=== PATIENT | male | born 1955 | race Caucasian/White ===

== ENCOUNTER 2017-10-07 10:43 | Inpatient (IN) | payer OTHER ==
[~2017-10-07] VITALS: Ht 177.8 cm; Wt 183.7 kg
[~2017-10-07 10:43] MED LIST: 50% Dextro25 GM/50 M IV; ALLOPURINOL300 MG PO; CATAPRES0.2 MG PO; CLONIDINE0.1 MG PO; COLACE100 MG PO; COLSALIDE IMPR0.6 MG PO; CYMBALTA60 MG PO; DEMADEX100 MG PO; DIAMOX250 MG PO; DULCOLAX10 MG R; DULCOLAX5 MG PO; DUONEB 3 MG/3 ML3 M1 NEB; HEP-LOCK100 U/ML IV; HYDROCODONE BIT1 T11 PO; KEFLEX500 MG PO; KLOR-CON20 MEQ PO; LANTUS100 U/ML SC; LASIX 40MG40 MG/4 ML IV; LASIX20 MG PO; LASIX40 MG PO; LISINOPRIL/HCTZ1 TA2 PO; LISINOPRIL20 MG PO; LOPRESSOR100 MG PO; Lovenox40 MG/0.4 SC; MOM30 M1 PO; MORPHINE SULF2 MG/M1 IV; NEURONTIN300 MG PO; NOVOLOG1 UNIT/0.0 SC; NYSTATIN CREAM15 GM T; OMEGA-3 FISH1200 M1 PO; PROCARDIA XL90 MG PO; PROCARDIA20 MG PO; PROMETHAZI6.25 MG/5 PO; RESTORIL15 MG PO; SALINE FLUSH IV; SYNTHROID,LEV175 MCG PO; TYLENOL325 M1 PO; TYLENOL650 MG R; VICODIN 5/500 505 MG PO; VICODIN 500 MG-1 TAB PO; WARFARIN SODIUM10 MG PO; ZITHROMAX250 MG PO; ZOFRAN2 MG/ML IV; [UNRECOGNIZED DRUG - OTHER] PO
[2017-10-07 10:50] VITALS: BP 137/73
[2017-10-07 11:06] LABS: BASO % 0.3 % (0.0-1.0); EOS # 0.5 10*3/uL (0.0-0.4); EOS % 3.9 % (1.0-4.0); HEMATOCRIT 36.4 % (42.0-52.0); HEMOGLOBIN 11.8 g/dl (14.0-18.0); LYMPH # 2.6 10*3/uL (1.3-4.4); LYMPH % 21.9 % (27.0-41.0); MEAN CELL VOLUME 94.3 fl (80.0-94.0); MEAN CORPUSCULAR HGB 30.6 pg (27.0-31.0); MEAN CORPUSCULAR HGB CONC 32.4 g/dl (33.0-37.0); MEAN PLATELET VOLUME 9.7 fl (9.6-12.3); MONO # 0.8 10*3/uL (0.1-1.0); MONO % 6.8 % (3.0-9.0); NEUT # 7.9 10*3/uL (2.3-7.9); NEUT % 66.6 % (47.0-73.0); PLATELET COUNT AUTOMATED 291 10*3/uL (130-400); RED BLOOD COUNT 3.86 10*6/uL (4.50-5.90); RED CELL DISTRI WIDTH 13.7 % (0-14.5); WHITE BLOOD COUNT 11.8 10*3/uL (4.8-10.8)
[2017-10-07 11:10] LABS: BILIRUBIN NEGATIVE (NEGATIVE); BLOOD TRACE-INTACT (NEGATIVE); CLARITY CLEAR (CLEAR); COLOR STRAW (YELLOW); GLUCOSE NEGATIVE (NEGATIVE); KETONE NEGATIVE (NEGATIVE); LEUKO ESTERASE NEGATIVE (NEGATIVE); NITRITE NEGATIVE (NEGATIVE); UROBILINOGEN 0.2 E.U./dl (0.2-1.0)
[2017-10-07 11:15] LABS: ACT PARTIAL THROMBO TIME 23.6 SECONDS (20.8-31.5); INTERNATIONAL NORM RATIO 1.3 (2.0-3.5)
[2017-10-07 11:24] LABS: RBC 0-2 rbc/hpf (0-2); WBC 0-2 wbc/hpf (0-5)
[2017-10-07 11:24] LABS: ALBUMIN 3.2 gm/dl (3.1-4.5); ALKALINE PHOSPHATASE 95 U/L (45-117); BUN 55 mg/dl (7-24); CHLORIDE 104 mmol/L (98-107); CREATININE 1.57 mg/dL (0.70-1.30); SGOT/AST 15 IU/L (3-35); SGPT/ALT 28 U/L (12-78); SODIUM 140 mmol/L (136-145); TOTAL PROTEIN 7.8 gm/dL (6.4-8.2)
--- NOTE | 2017-10-07 11:24 | NUR ---
PT WEARING CEHLSEY WRAPS TO BOTH LOWER EXTREMITY. THIS WAS REMOVED AND SMALL OPEN AREA NOTED TO RIGHT LOWER LEG WITH MILD REDNESS NOTED. PT ALSO HAS BLACK SPOTS OF BOTH FEET + PEDAL PULSE FEET WARM AND DRY. REDNESS NOTED UNDER ABD AND SCROTUM. WITH TURNING TH PATIENT MUCH POSSIBLE SMALL OPEN AREA NOTED TO LEFT UUPERLEG/BUTTOCKS ALSO RIGHT LEG. JEN BOSE RN.
[2017-10-07 11:25] LABS: TROPONIN I < 0.015 ng/ml (<0.045)
--- NOTE | 2017-10-07 11:27 | NUR ---
PT HAS HIS MEDICATIONS CELL PHONE BLACK WALLET, SHORTS, SHIRT SOCKS, AND PAD FOR HIS CHELSEY LIFT. JEN BOSE RN.
[2017-10-07 11:46] VITALS: BP 129/78
[2017-10-07 12:36] VITALS: BP 124/66
[2017-10-07] MEDS ORDERED: LOPERAMIDE HCL2 MG PO (12:48)
[2017-10-07] MEDS ORDERED: MIRALAX119 GM PO (12:50)
[2017-10-07] MEDS ORDERED: OMEPRAZOLE40 MG PO (12:51)
[2017-10-07] MEDS ORDERED: FORTAMET1000 MG PO (12:55)
[2017-10-07] MEDS ORDERED: NIFEDIPINE ER90 M1 PO (12:58)
--- NOTE | 2017-10-07 13:04 | NUR ---
MSADMTime: N A 62 year old MALE admitted to 4E under services of PAOLA FLOYD DO Pt. arrived via bed from ER. Chief complaint: REHANA CHINCHILLA L
--- NOTE | 2017-10-07 13:12 | NUR ---
SPOKE WITH DR. JASSO REGARDING PT'S MED REC.
[2017-10-07] MEDS ORDERED: BASAGLAR SC (13:16)
--- NOTE | 2017-10-07 13:18 | NUR ---
RECEIVED MED LIST FROM [facility] WHICH MOST MEDS HAVE NOT BEEN FILLED FOR QUITE SOMETIME. ASKED PT IF HE USED ANY OTHER PHARMACY, PT DENIES USING ANY OTHER PHARMACY BUT [facility]. WENT OVER LIST IN MED REC WITH PT WHO IS ALERT & ORIENTED BUT HAS NO IDEA WHAT MOST MEDS ARE. STATES " I DONT TAKE ALOT OF THESE MEDS BECAUSE [facility] WON'T FILL THEM FOR ME" WHEN QUESTIONED ABOUT LAST TIME MEDS WERE FILLED, PT HAS NO CERTAIN ANSWER. ATTEMPTED TO UPDATE MED REC TO THE BEST OF OUR ABILITY. DR ELAINE MADE AWARE BY PRIMARY NURSE. MED LIST FROM [facility] ON CHART.
[2017-10-07] MEDS ORDERED: 'CLONIDINE0.1 MG PO (13:29)
[2017-10-07] MEDS ORDERED: DIAMOX500 MG PO (13:30)
[2017-10-07] MEDS ORDERED: NEURONTIN300 MG PO (13:30)
[2017-10-07] MEDS ORDERED: CYMBALTA60 MG PO (13:30)
[2017-10-07] MEDS ORDERED: ALLOPURINOL300 MG PO (13:31)
[2017-10-07] MEDS ORDERED: LOPRESSOR100 M1 PO (13:31)
[2017-10-07] MEDS ORDERED: LANTUS SOL100 UNIT/1 SC (13:32)
[2017-10-07 16:00] VITALS: BP 138/74
[2017-10-07 20:00] VITALS: BP 141/48
[2017-10-08] VITALS: BP 118/57
[2017-10-08 06:50] LABS: BASO % 0.4 % (0.0-1.0); EOS # 0.3 10*3/uL (0.0-0.4); EOS % 3.2 % (1.0-4.0); HEMATOCRIT 34.1 % (42.0-52.0); LYMPH # 2.7 10*3/uL (1.3-4.4); LYMPH % 25.4 % (27.0-41.0); MEAN CELL VOLUME 96.3 fl (80.0-94.0); MEAN CORPUSCULAR HGB 31.1 pg (27.0-31.0); MEAN CORPUSCULAR HGB CONC 32.3 g/dl (33.0-37.0); MONO # 0.7 10*3/uL (0.1-1.0); MONO % 6.9 % (3.0-9.0); NEUT # 6.8 10*3/uL (2.3-7.9); NEUT % 63.7 % (47.0-73.0); PLATELET COUNT AUTOMATED 258 10*3/uL (130-400); RED BLOOD COUNT 3.54 10*6/uL (4.50-5.90); RED CELL DISTRI WIDTH 13.7 % (0-14.5); WHITE BLOOD COUNT 10.6 10*3/uL (4.8-10.8)
[2017-10-08 07:18] LABS: INTERNATIONAL NORM RATIO 1.2 (2.0-3.5)
[2017-10-08 07:20] LABS: BUN 56 mg/dl (7-24); CHLORIDE 102 mmol/L (98-107); CHOLESTEROL 127 mg/dL (<200); CREATININE 1.36 mg/dL (0.70-1.30); FREE T4 1.61 ng/dl (0.76-1.46); HDL CHOLESTEROL 36 mg/dl (40-60); LDL CHOLESTEROL 74 mg/dL (9-159); PHOSPHOROUS 3.9 mg/dL (2.5-4.9); POTASSIUM 4.8 mmol/L (3.5-5.1); SODIUM 137 mmol/L (136-145); TRIGLYCERIDES 87 mg/dl (<150); VLDL CHOLESTEROL 17 mg/dL (6-40)
[2017-10-08 07:27] LABS: THYROID STIM HORMONE (HS) 0.704 uIU/ml (0.358-4.75)
[2017-10-08 07:54] LABS: VITAMIN D, 25-HYDROXY 27.1 ng/mL (30-100)
[2017-10-08 08:00] VITALS: BP 117/83
--- NOTE | 2017-10-08 08:00 | NUR ---
IN BED AWAKE ALERT AND ORIENTED X3, GETTING BREATHING TREATMENT. NO S/S OF DISTRESS. SEE ASSESS. WILL CONT TO MONITOR. CALL LIGHT IN REACH.
--- NOTE | 2017-10-08 08:42 | NUR ---
In to see patient to discuss discharge plans. Patient stated he wants to be referred to [facility]. Will contacted Stephanie and fax referral. Will require precert.
--- NOTE | 2017-10-08 09:19 | NUR ---
CALLED PCP OFFICE TO GET LIST OF HOME MEDS. MESSAGE LEFT APPROPRIATE PERSON AND AWAITING CALLBACK.
--- NOTE | 2017-10-08 09:36 | NUR ---
PHYSICAL THERAPY PAtient evaluated on 4, full evaluation to follow. Continue with PT as per plan of care with fall, max (A) x 2, evon and non ambulatory or standing for 3-5 years precautions. PAtient wanst SNF. MAy require LTAC. PAtient is high complexity via chart review, tests and evaluation : 66519. Thank you for for this referral. Velia Adame
--- NOTE | 2017-10-08 10:33 | NUR ---
Occupational Therapy evaluation completed this date on 4 with full eval to follow. Precautions include obesity >400 lbs, O2 dependency, sleep apnea, unable to stand or walk for 3-5 yrs, Fredy use, elec w/c; both of which are broken per patient, high complexity level 82920. Recommend OT per POC and LTACH or bariatric SNF. Thank you for this referral. Nadya Valadez OTR/l
--- NOTE | 2017-10-08 10:56 | NUR ---
[facility] stated they are unable to accept this patient as his insurance is out of network.
--- NOTE | 2017-10-08 11:47 | NUR ---
DR ELAINE ASKED THAT I CALL WITH [facility] THAT THE PT GOES TO AND GET A MEDICAL HISTORY ON HIM FAXED OVER TO US. I DID SPEAK TO SOMEONE AT THE [facility] AND SHE SAID SHE WOULD FAX ME WHAT LITTLE INFO THEY DO HAVE ON HIM BECAUSE THEY HAVE HAD A PROBLEM GETTING ACCURATE INFO FROM HIM WELL.
[2017-10-08] MEDS ORDERED: NATURE'S BLEND F1 MG PO (11:50)
[2017-10-08] MEDS ORDERED: NITROSTAT0.4 MG SL (11:50)
--- NOTE | 2017-10-08 11:50 | NUR ---
ANKUR NAVAS [id number] Please refer to the physician's history and physical for past medical history, comorbid conditions, and allergies. Diagnosis: MORBID OBESITY ACUTE KIDNEY FAILURE WITH TUBULAR Jacob Score: 13,MODERATE RISK WOUND DESCRIPTIONS: Location of the wound: right posterior thigh Type of wound: stage 2 Thickness: Partial Size: 0.5cm x 1.0cm x 0.1cm Tunneling: none Undermining: none Sinus Tract: none Presence of Exudate: Serosanguineous Amount: Light Color: Red Odor: None Periwound Skin Appearance: Normal Wound edges: approximated Pain (associated with wound): none at time of assessment How does patient state this happened? pt stated he happened when being transfered to the ER bed Location of the wound: left buttocks Type of wound: stage 2 Thickness: Partial Size: 0.3cm x 0.3cm x 0.1cm Tunneling: none Undermining: none Sinus Tract: none Presence of Exudate: Serosanguineous Amount: Light Color: Red Odor: None Periwound Skin Appearance: Normal Wound edges: approximated Pain (associated with wound): none at time of assessment How does patient state this happened? pt stated it happened when transfered to the ER bed. Surface the patient is resting on: Isoflex SKIN PREVENTION RECOMMENDATION: 1. Pressure redistribution support surface as appropriate 2. Elevate heels 3. Remove boots/TEDS every shift and reapply 4. Head of bed 30 degrees as tolerated 5. Assess nutrition and hydration 6. Manage moisture 7. Avoid the use of containment devices while in bed 8. Use absorptive products on surfaces limit layers of linens on bed 9. Turn and reposition every 1-2 hours in bed and every 1 hour in chair as tolerated 10. Weight shifts every 15 minutes while up in chair 11. Offloading with pillows or device to keep heels elevated off bed 12. Monitor skin at least every shift 13. Inspect under medical devices twice a day WOUND TREATMENT RECOMMENDATIONS: Cleanse right posterior thigh and left buttocks with nss and apply sureprep to surrounding area therahoney to wound bed cover areas with optifoam gentle. Dr. Mosqueda notified of wound care recommendations.
[2017-10-08] MEDS ORDERED: DOCUSATE SODIU100 M2 PO (11:51)
[2017-10-08] MEDS ORDERED: Coumadin5 MG PO (11:53)
[2017-10-08 12:00] VITALS: BP 145/71
--- NOTE | 2017-10-08 12:04 | NUR ---
MED REC UPDATED BASED ON LIST PROVIDED FROM [facility]. I LEFT THE MEDS ON THE MED REC THAT WERE CONTINUED BY THE DOCTOR HERE AND WAS NOT ON THE LIST FROM THE [facility] AND I TOOK THE OTHERS OFF.
--- NOTE | 2017-10-08 13:26 | NUR ---
In to see patient, explained [facility] is out of network for his insurance, however [facility] is willing to take him. He was in agreement. [facility]ron owusu will start precert and is ordering bariatric supplies. Waiting on auth
[2017-10-08 16:00] VITALS: BP 128/61
[2017-10-08 20:00] VITALS: BP 139/60
--- NOTE | 2017-10-08 20:10 | NUR ---
PT MOVED TO BARIATRIC BED. PT EDUCATED ON BED CONTROLS AND LIFT. NO COMPLAINTS FROM THE PT AT THIS TIME.
[2017-10-09] VITALS: BP 128/63
[2017-10-09 06:11] LABS: BUN 51 mg/dl (7-24); CHLORIDE 103 mmol/L (98-107); CREATININE 1.31 mg/dL (0.70-1.30); SODIUM 138 mmol/L (136-145)
[2017-10-09 06:16] LABS: INTERNATIONAL NORM RATIO 1.2 (2.0-3.5)
[2017-10-09 08:00] VITALS: BP 143/87
[2017-10-09 12:00] VITALS: BP 139/67
[2017-10-09 16:00] VITALS: BP 150/63
[2017-10-09 20:00] VITALS: BP 148/66
[2017-10-10] VITALS: BP 104/61
--- NOTE | 2017-10-10 | NUR ---
RESTING IN BED; AWAKE & ALERT. 02 INTACT AT 3 LITERS VIA N/C; PULSE OX 98%. LUNGS WITH SOME SCATTERED WHEEZES; COUGH PRODUCTIVE PER PATIENT FOR YELLOW/GREEN SPUTUM. PT. VOICES NO C/O AT THIS TIME. NO DISTRESS NOTED. CALL LIGHT WITHIN REACH.
[2017-10-10 06:32] LABS: BASO # 0.1 10*3/uL (0.0-0.1); BASO % 0.5 % (0.0-1.0); EOS # 0.4 10*3/uL (0.0-0.4); EOS % 3.7 % (1.0-4.0); HEMATOCRIT 32.3 % (42.0-52.0); HEMOGLOBIN 10.7 g/dl (14.0-18.0); LYMPH # 2.9 10*3/uL (1.3-4.4); LYMPH % 26.3 % (27.0-41.0); MEAN CELL VOLUME 93.9 fl (80.0-94.0); MEAN CORPUSCULAR HGB 31.1 pg (27.0-31.0); MEAN CORPUSCULAR HGB CONC 33.1 g/dl (33.0-37.0); MEAN PLATELET VOLUME 9.9 fl (9.6-12.3); MONO # 0.8 10*3/uL (0.1-1.0); MONO % 7.2 % (3.0-9.0); NEUT # 6.8 10*3/uL (2.3-7.9); NEUT % 61.9 % (47.0-73.0); PLATELET COUNT AUTOMATED 280 10*3/uL (130-400); RED BLOOD COUNT 3.44 10*6/uL (4.50-5.90); RED CELL DISTRI WIDTH 13.7 % (0-14.5)
[2017-10-10 06:59] LABS: ALBUMIN 3.1 gm/dl (3.1-4.5); ALKALINE PHOSPHATASE 84 U/L (45-117); BUN 46 mg/dl (7-24); CHLORIDE 103 mmol/L (98-107); CREATININE 1.31 mg/dL (0.70-1.30); POTASSIUM 4.4 mmol/L (3.5-5.1); SGOT/AST 9 IU/L (3-35); SGPT/ALT 19 U/L (12-78); SODIUM 137 mmol/L (136-145); TOTAL PROTEIN 7.2 gm/dL (6.4-8.2)
[2017-10-10 07:00] LABS: INTERNATIONAL NORM RATIO 1.1 (2.0-3.5)
[2017-10-10 08:00] VITALS: BP 120/60
--- NOTE | 2017-10-10 08:00 | NUR ---
SLEEPING, AROUSES EASILY WITH NO VOICED C/O OFFERED. EASY RESPIRATIONS WITH SKIN W/D. CALL LIGHT SYSTEM REINFORCED FOR ASSISTANCE. SEE SHIFT ASSESSMENT.
[2017-10-10 12:00] VITALS: BP 164/80
--- NOTE | 2017-10-10 12:19 | NUR ---
DR GROSS IN TO SEE PT.
[2017-10-10 16:00] VITALS: BP 128/71
[2017-10-10 20:00] VITALS: BP 136/72
--- NOTE | 2017-10-10 22:00 | NUR ---
PT STOOD OUT OF BED ON HIS OWN FOR A PERIOD OF 10 SECONDS. NURSE AND AIDE WAS THERE TO KEEP PT STEADY. PT GOT UP ON HIS OWN. WILL CONTINUE TO MONITOR.
[2017-10-11] VITALS: BP 135/76
[2017-10-11 07:24] LABS: INTERNATIONAL NORM RATIO 1.1 (2.0-3.5)
[2017-10-11 08:00] VITALS: BP 140/70
--- NOTE | 2017-10-11 11:25 | NUR ---
PATIENT SEEN 1:1 OT 17 MINUTES THIS DATE. PATIENT IDENTIFIED BY NAME AND DATE OF . PATIENT IN BED UPON ARRIVAL ON BED SALGUERO. PATIENT VERBALIZED THAT HE DID NOT FEEL LIKE HE WAS GOING TO HAVE A BM AND REMOVED BED SALGUERO INDEPENDENTLY. PATIENT REPORTS THAT HE DOES EXERCISES ALL DAY LONG. PATIENT COMPLETED SUPINE TO SIT EOB SBA. COMPLETED BUE AROM SEATED ALL PLANES INCLUDED SHOULDER FLEXION/EXT X 20 REPS, ELBOW FLEX/EXT X 20 REPS, SHOULDER RETRACT/PROTRACT X 13 REP TOLERANCE SECONDARY FATIGUE AND VERBALIZING THAT WAS ALL HE COULD DO, AND HORIZONTAL ABD/ADD X 25 REPS. PATIENT REQUIRED MODERATE REST BREAKS WITH SOB. PATIENT EDUCATED PURSE REJI BREATHING TECHNIQUES AND TO PACE SELF WITH EXERCISES. PATIENT EASILY DISTRACTED AND REQUIRED REDIRECTION TO MAINTAIN ATTENTION TASK. PATIENT COMPLETED SIT TO SUPINE SBA WITH NO FURTHER NEED VERBALIZED AND CALL LIGHT WITHIN REACH. JAYMIE WOODS
[2017-10-11 12:00] VITALS: BP 128/56
--- NOTE | 2017-10-11 12:10 | NUR ---
Recieved auth for patient to go to [facility]. Cele said the bariatric equipment has arrived and patient is ok to go today. Notified Yarelis Nurse director of hospitalists for discharge.
--- NOTE | 2017-10-11 12:17 | NUR ---
AMY RECEIVED CALL FROM BEN REYNAGA ([phone]) INQUIRING IF PT WAS GOING TO [facility] FOR REHAB. ADA HAD JUST SPOKEN WITH PT. AMY INFORMED HER THAT PT MAY GO TO [facility] TODAY.
[2017-10-11] MEDS ORDERED: Insulin Lispro, Reco SC (13:25)
[2017-10-11] MEDS ORDERED: Vitamin D PO (13:25)
[2017-10-11] MEDS ORDERED: COUMADIN10 M1 PO (13:25)
--- NOTE | 2017-10-11 14:25 | NUR ---
Nutritional Support Services Note: Attempted to discuss diet with pt. Pt told me he knows how to follow a diet and what to do. He has lost 400# in the last 6 months per pt. He refused diet copy and refused to listen to diet instruction. Pt being discharged to area longterm. Stacia Silva
--- NOTE | 2017-10-11 14:29 | NUR ---
PHYSICAL THERAPY Patient presented to therapy in supine with report of doing exercises throughout the day and being in 3 nursing homes recently. Patient performed ther ex in the bed in supine and in sitting at EOB in all planes of mvmt. x 20 reps each. Patient transfers supine to sitting at EOB and from EOB sitting to supine in bed with SBA. Patient says he has not stood in a long time and was evon lifted most of the time in nursing homes. Patient was 1:1 with this FREE LANCE ARTIST for 25 minutes total. Patient was left in supine with call light within reach. Filipe Geronimo FREE LANCE ARTIST
--- NOTE | 2017-10-11 14:41 | NUR ---
Patient is being discharged to [facility], transportation scheduled for 4:30 pm with [facility]. NH and nursing notified.
--- NOTE | 2017-10-11 19:25 | NUR ---
REPORT GIVEN TO NURSE AT [facility]. Discharge instructions reviewed with patient/family. Patient receptive and verbalizes understanding. Follow-up care arranged. Written instructions given to patient/family. Patient left unit in the care of EMT's. He at one point was refusing to go to the group home unless they had a mobile wheelchair. I informed the patient that he was going to the group home [facility] and that arrangements for a chair could be addressed in the morning with the major case detective. He insisted that he would be returning to the hospital tonight if they did not have this chair. I reinforced that is no reason to be readmitted into the hospital and he is to stay at the group home [facility]. I told him arrangements have been made and we were not changing the plans. MEREDITH COOK
--- NOTE | 2017-10-12 07:41 | NUR ---
PHYSICAL THERAPY CO-SIGN I approve of the Phyical Therapy notes written above. CAMRYN RUIZ PT
--- NOTE | 2017-10-13 08:35 | NUR ---
OCCUPATIONAL THERAPY CO-SIGN I approve of the Occupational Therapy notes written above. LOUIS ARRIAGA OTR/Anabel
== END 2017-10-11 19:25 | disposition other institution (70) | DRG 682 ==
LOC: ED 10:43 → EDHOLD 11:43 → 4E 11:43
PROVIDERS: Internal Medicine; Nurse Practitioner Family; Student in an Organized Health Care Education/Training Program; ADMIT Internal Medicine
DX: N17.0 Acute kidney failure with tubular necrosis (principal); R53.2 Functional quadriplegia; J96.11 Chronic respiratory failure with hypoxia; L89.321 Pressure ulcer of left buttock, stage 1; L89.211 Pressure ulcer of right hip, stage 1; E46 Unspecified protein-calorie malnutrition; I50.32 Chronic diastolic (congestive) heart failure; Z68.43 Body mass index [BMI] 50.0-59.9, adult; Z99.81 Dependence on supplemental oxygen; B35.1 Tinea unguium; E11.65 Type 2 diabetes mellitus with hyperglycemia; E03.9 Hypothyroidism, unspecified; R31.9 Hematuria, unspecified; M10.9 Gout, unspecified; I87.2 Venous insufficiency (chronic) (peripheral); D72.810 Lymphocytopenia; E55.9 Vitamin D deficiency, unspecified; D53.9 Nutritional anemia, unspecified; D72.829 Elevated white blood cell count, unspecified; R79.1 Abnormal coagulation profile; E66.01 Morbid (severe) obesity due to excess calories; Z91.14 Patient's other noncompliance with medication regimen; Z79.01 Long term (current) use of anticoagulants; Z79.4 Long term (current) use of insulin; Z83.3 Family history of diabetes mellitus; Z82.49 Family history of ischemic heart disease and other diseases of the circulatory system; Z80.9 Family history of malignant neoplasm, unspecified; Z79.84 Long term (current) use of oral hypoglycemic drugs; Z79.899 Other long term (current) drug therapy

== ENCOUNTER 2018-02-21 12:08 | Emergency (ER) | payer OTHER ==
[~2018-02-21] VITALS: Wt 181.4 kg
[~2018-02-21 12:08] MED LIST changes: +'CLONIDINE0.1 MG PO; +BASAGLAR SC; +COUMADIN10 M1 PO; +Coumadin5 MG PO; +DIAMOX500 MG PO; +DOCUSATE SODIU100 M2 PO; +FORTAMET1000 MG PO; +Insulin Lispro, Reco SC; +LANTUS SOL100 UNIT/1 SC; +LOPERAMIDE HCL2 MG PO; +LOPRESSOR100 M1 PO; +MIRALAX119 GM PO; +NATURE'S BLEND F1 MG PO; +NIFEDIPINE ER90 M1 PO; +NITROSTAT0.4 MG SL; +OMEPRAZOLE40 MG PO; +Vitamin D PO
[2018-02-21 18:19] LABS: BASO # 0.1 10*3/uL (0.0-0.1); BASO % 0.3 % (0.0-1.0); EOS % 0.1 % (1.0-4.0); HEMATOCRIT 31.2 % (42.0-52.0); LYMPH # 1.3 10*3/uL (1.3-4.4); LYMPH % 7.5 % (27.0-41.0); MEAN CELL VOLUME 95.7 fl (80.0-94.0); MEAN CORPUSCULAR HGB 30.7 pg (27.0-31.0); MEAN CORPUSCULAR HGB CONC 32.1 g/dl (33.0-37.0); MEAN PLATELET VOLUME 10.2 fl (9.6-12.3); MONO # 1.1 10*3/uL (0.1-1.0); NEUT # 15.1 10*3/uL (2.3-7.9); NEUT % 85.6 % (47.0-73.0); PLATELET COUNT AUTOMATED 266 10*3/uL (130-400); RED BLOOD COUNT 3.26 10*6/uL (4.50-5.90); RED CELL DISTRI WIDTH 13.7 % (0-14.5); WHITE BLOOD COUNT 17.6 10*3/uL (4.8-10.8)
[2018-02-21 18:29] LABS: ACT PARTIAL THROMBO TIME 26.6 SECONDS (20.8-31.5); INTERNATIONAL NORM RATIO 1.8 (2.0-3.5)
[2018-02-21 18:33] LABS: ALBUMIN 3.2 gm/dl (3.1-4.5); CREATININE 1.89 mg/dL (0.70-1.30); POTASSIUM 4.5 mmol/L (3.5-5.1); TOTAL PROTEIN 7.3 gm/dL (6.4-8.2)
== END 2018-02-21 18:02 | disposition short-term general hospital (02) ==
LOC: ED 12:08
PROVIDERS: Emergency Medicine
DX: S82.391A Other fracture of lower end of right tibia, initial encounter for closed fracture (principal); S82.831A Other fracture of upper and lower end of right fibula, initial encounter for closed fracture; S82.142A Displaced bicondylar fracture of left tibia, initial encounter for closed fracture; S82.392A Other fracture of lower end of left tibia, initial encounter for closed fracture; S82.832A Other fracture of upper and lower end of left fibula, initial encounter for closed fracture; I11.0 Hypertensive heart disease with heart failure; I50.9 Heart failure, unspecified; J44.9 Chronic obstructive pulmonary disease, unspecified; E11.65 Type 2 diabetes mellitus with hyperglycemia; M10.9 Gout, unspecified; E66.01 Morbid (severe) obesity due to excess calories; Z99.81 Dependence on supplemental oxygen; Z79.4 Long term (current) use of insulin; Z87.891 Personal history of nicotine dependence; Z98.890 Other specified postprocedural states; Z90.89 Acquired absence of other organs; Z79.899 Other long term (current) drug therapy; Z79.01 Long term (current) use of anticoagulants; W19.XXXA Unspecified fall, initial encounter; Y93.89 Activity, other specified; Y92.89 Other specified places as the place of occurrence of the external cause; Y99.9 Unspecified external cause status

== ENCOUNTER 2018-04-02 17:05 | Emergency (ER) | payer MEDICARE, MEDICAID ==
[~2018-04-02] VITALS: Ht 180.3 cm; Wt 195.0 kg
== END 2018-04-02 21:00 | disposition other institution (70) ==
LOC: ED 17:05
DX: T84.498A Other mechanical complication of other internal orthopedic devices, implants and grafts, initial encounter (principal); Z87.891 Personal history of nicotine dependence; Z79.899 Other long term (current) drug therapy; Z79.01 Long term (current) use of anticoagulants; Z79.4 Long term (current) use of insulin; Z88.6 Allergy status to analgesic agent; Y92.9 Unspecified place or not applicable

== ENCOUNTER 2018-04-26 14:52 | Emergency (ER) | payer MEDICARE, MEDICAID ==
[~2018-04-26] VITALS: Wt 195.0 kg
== END 2018-04-26 19:41 ==
LOC: ED 14:52
DX: Z47.89 Encounter for other orthopedic aftercare (principal); I11.0 Hypertensive heart disease with heart failure; I50.9 Heart failure, unspecified; J44.9 Chronic obstructive pulmonary disease, unspecified; E11.65 Type 2 diabetes mellitus with hyperglycemia; E03.9 Hypothyroidism, unspecified; E66.01 Morbid (severe) obesity due to excess calories; Z79.4 Long term (current) use of insulin; Z86.718 Personal history of other venous thrombosis and embolism; Z99.81 Dependence on supplemental oxygen; Z90.89 Acquired absence of other organs; Z98.890 Other specified postprocedural states; Z87.891 Personal history of nicotine dependence; Z79.899 Other long term (current) drug therapy; Z79.01 Long term (current) use of anticoagulants; Z88.6 Allergy status to analgesic agent

== ENCOUNTER 2018-05-09 01:02 | Emergency (ER) | payer MEDICARE, MEDICAID ==
[~2018-05-09] VITALS: Wt 204.1 kg
[2018-05-09 01:30] LABS: BASO % 0.3 % (0.0-1.0); EOS # 0.4 10*3/uL (0.0-0.4); EOS % 4.4 % (1.0-4.0); HEMATOCRIT 28.3 % (42.0-52.0); HEMOGLOBIN 8.7 g/dl (14.0-18.0); LYMPH # 2.7 10*3/uL (1.3-4.4); LYMPH % 26.7 % (27.0-41.0); MEAN CELL VOLUME 99.3 fl (80.0-94.0); MEAN CORPUSCULAR HGB 30.5 pg (27.0-31.0); MEAN CORPUSCULAR HGB CONC 30.7 g/dl (33.0-37.0); MEAN PLATELET VOLUME 9.1 fl (9.6-12.3); MONO # 0.8 10*3/uL (0.1-1.0); MONO % 7.8 % (3.0-9.0); NEUT # 6.1 10*3/uL (2.3-7.9); NEUT % 60.5 % (47.0-73.0); PLATELET COUNT AUTOMATED 242 10*3/uL (130-400); RED BLOOD COUNT 2.85 10*6/uL (4.50-5.90); RED CELL DISTRI WIDTH 14.6 % (0-14.5)
[2018-05-09 01:40] LABS: ACT PARTIAL THROMBO TIME 24.8 SECONDS (20.8-31.5); INTERNATIONAL NORM RATIO 1.2 (2.0-3.5)
[2018-05-09 01:47] LABS: ALBUMIN 2.7 gm/dl (3.1-4.5); ALKALINE PHOSPHATASE 96 U/L (45-117); BUN 43 mg/dl (7-24); CHLORIDE 104 mmol/L (98-107); CREATININE 1.33 mg/dL (0.70-1.30); SGOT/AST 3 IU/L (3-35); SGPT/ALT 13 U/L (12-78); SODIUM 139 mmol/L (136-145); TOTAL PROTEIN 6.7 gm/dL (6.4-8.2)
[2018-05-09 01:48] LABS: TROPONIN I < 0.015 ng/ml (<0.045)
== END 2018-05-09 04:16 | disposition other institution (70) ==
LOC: ED 01:02
PROVIDERS: Student in an Organized Health Care Education/Training Program
DX: G47.30 Sleep apnea, unspecified (principal); I11.0 Hypertensive heart disease with heart failure; I50.9 Heart failure, unspecified; J44.9 Chronic obstructive pulmonary disease, unspecified; E11.65 Type 2 diabetes mellitus with hyperglycemia; E03.9 Hypothyroidism, unspecified; E66.01 Morbid (severe) obesity due to excess calories; M10.9 Gout, unspecified; Z79.4 Long term (current) use of insulin; Z86.718 Personal history of other venous thrombosis and embolism; Z79.899 Other long term (current) drug therapy; Z87.891 Personal history of nicotine dependence; Z90.89 Acquired absence of other organs; Z79.01 Long term (current) use of anticoagulants; Z88.6 Allergy status to analgesic agent; Z99.81 Dependence on supplemental oxygen

== ENCOUNTER 2018-05-30 13:54 | Emergency (ER) | payer MEDICARE, MEDICAID | END 2018-05-30 22:14 | LOC: ED 13:54 | DX: S82.142A Displaced bicondylar fracture of left tibia, initial encounter for closed fracture (principal); S82.192A Other fracture of upper end of left tibia, initial encounter for closed fracture; S82.832A Other fracture of upper and lower end of left fibula, initial encounter for closed fracture; S82.391A Other fracture of lower end of right tibia, initial encounter for closed fracture; Z87.891 Personal history of nicotine dependence; Z90.89 Acquired absence of other organs; Z79.899 Other long term (current) drug therapy; Z79.01 Long term (current) use of anticoagulants; Z88.6 Allergy status to analgesic agent; X58.XXXA Exposure to other specified factors, initial encounter; Y93.89 Activity, other specified; Y92.89 Other specified places as the place of occurrence of the external cause; Y99.9 Unspecified external cause status ==

== ENCOUNTER 2018-06-16 17:24 | Inpatient (IN) | payer MEDICARE, MEDICAID ==
[~2018-06-16] VITALS: Ht 177.8 cm; Wt 263.1 kg
--- NOTE | ~2018-06-16 | PR ---
[place], [place] PROGRESS NOTE NAME: ANKUR NAVAS UNIT #: [id number] ROOM: 428 DOCTOR: FREEDOM RUVALCABA DPM BIRTHDATE: [birth year] DOS: 06/23/[address] Coleman Leal note. The patient was seen with Dr. Leal under my direct supervision. I agree with the above note and the patient will be seen tomorrow by Dr. Rubi. FREEDOM RUVALCABA DPM CM:SERGIO [id number] FREEDOM RUVALCABA DPM 06/23/[id number] interface
--- NOTE | ~2018-06-16 | PR ---
[place], [place] PROGRESS NOTE NAME: ANKUR NAVAS UNIT #: [id number] ROOM: 428 DOCTOR: FREEDOM RUVALCABA DPM BIRTHDATE: [birth year] DOS: 06/21/2018 ADDENDUM The patient was seen with Dr. Coleman Leal. I agree with the resident's note. FREEDOM RUVALCABA DPM CM:PNTRANS [id number] FREEDOM RUVALCABA DPM 07/01/18 0029 interface
--- NOTE | ~2018-06-16 | PR ---
[place], [place] PROGRESS NOTE NAME: ANKUR NAVAS UNIT #: [id number] ROOM: 428 DOCTOR: FREEDOM RUVALCABA DPM BIRTHDATE: [birth year] DOS: 06/23/2018 ADDENDUM The patient was seen with resident, Dr. Coleman Leal. I agree with the resident's note. FREEDOM URVALCABA DPM CM:PNTRANS [id number] FREEDOM RUVALCABA DPM 07/01/18 0027 interface
--- NOTE | ~2018-06-16 | EKG ---
[place], [place] ELECTROCARDIOGRAM REPORT NAME: ANKUR NAVAS UNIT #: [id number] ROOM: 428 DOCTOR: MEI DRAFT REPORT BIRTHDATE: [birth year] [facility] Test Date: 2018-06-20 Test Time: 07:16:48 Pat Name: ANKUR NAVAS Department: Room: [facility] 1 Gender: M Reinforcing Bar Setter: : 1955 Requested By: STEVEN ELAINE Order Number: [id number] Reading MD: Neville Rose MD Measurements Intervals Rio Rate: 72 P: 43 MA: 259 QRS: -73 QRSD: 165 T: 54 QT: 464 QTc: 508 Interpretive Statements Sinus rhythm Prolonged MA interval RBBB and LAFB Electronically Signed On 06-20-2018 19:20:15 PDT by Neville Rose MD CM:EKGRPT:ELECTROCARDIOGRAM REPORT [id number] 19 STEVEN CUELLAR DRAFT REPORT STEVEN ELAINE DO
[2018-06-16 17:26] VITALS: BP 135/59
[2018-06-16 18:09] LABS: BASO % 0.3 % (0.0-1.0); EOS # 0.7 10*3/uL (0.0-0.4); EOS % 4.5 % (1.0-4.0); HEMATOCRIT 25.3 % (42.0-52.0); HEMOGLOBIN 7.7 g/dl (14.0-18.0); LYMPH # 1.8 10*3/uL (1.3-4.4); LYMPH % 12.1 % (27.0-41.0); MEAN CELL VOLUME 98.1 fl (80.0-94.0); MEAN CORPUSCULAR HGB 29.8 pg (27.0-31.0); MEAN CORPUSCULAR HGB CONC 30.4 g/dl (33.0-37.0); MEAN PLATELET VOLUME 8.8 fl (9.6-12.3); MONO # 1.1 10*3/uL (0.1-1.0); MONO % 7.8 % (3.0-9.0); NEUT # 10.8 10*3/uL (2.3-7.9); NEUT % 74.3 % (47.0-73.0); PLATELET COUNT AUTOMATED 241 10*3/uL (130-400); RED BLOOD COUNT 2.58 10*6/uL (4.50-5.90); WHITE BLOOD COUNT 14.5 10*3/uL (4.8-10.8)
[2018-06-16 18:17] LABS: ACT PARTIAL THROMBO TIME 29.2 SECONDS (20.8-31.5); INTERNATIONAL NORM RATIO 1.3 (2.0-3.5)
[2018-06-16 18:26] LABS: ALBUMIN 2.4 gm/dl (3.1-4.5); ALKALINE PHOSPHATASE 113 U/L (45-117); BUN 32 mg/dl (7-24); CHLORIDE 99 mmol/L (98-107); CREATININE 1.18 mg/dL (0.70-1.30); POTASSIUM 3.7 mmol/L (3.5-5.1); SGOT/AST 10 IU/L (3-35); SGPT/ALT 15 U/L (12-78); SODIUM 138 mmol/L (136-145); TOTAL PROTEIN 6.9 gm/dL (6.4-8.2)
[2018-06-16 18:28] LABS: BILIRUBIN NEGATIVE (NEGATIVE); BLOOD TRACE-INTACT (NEGATIVE); CLARITY CLEAR (CLEAR); COLOR YELLOW (YELLOW); GLUCOSE NEGATIVE (NEGATIVE); KETONE NEGATIVE (NEGATIVE); LEUKO ESTERASE NEGATIVE (NEGATIVE); NITRITE NEGATIVE (NEGATIVE); PH 5.5 (5.0-9.0); SPECIFIC GRAVITY 1.015 (1.005-1.030); UROBILINOGEN 0.2 E.U./dl (0.2-1.0)
[2018-06-16 18:41] LABS: RBC 0-2 rbc/hpf (0-2)
[2018-06-16 20:02] VITALS: BP 146/70
[2018-06-16 20:30] VITALS: BP 147/55
[2018-06-17] VITALS: BP 157/68
[2018-06-17] MEDS ORDERED: SENSE PAI PO (00:59)
[2018-06-17] MEDS ORDERED: COUMADIN4 M2 PO (01:02)
[2018-06-17] MEDS ORDERED: DULCOLAX10 M1 R (01:03)
[2018-06-17] MEDS ORDERED: LANTUS SOL100 UNIT/1 SQ (01:05)
[2018-06-17] MEDS ORDERED: COZAAR100 MG PO (01:08)
[2018-06-17] MEDS ORDERED: MILK OF MA400 MG/5 M PO (01:10)
[2018-06-17] MEDS ORDERED: NYSTATIN CREAM15 GM T (01:11)
[2018-06-17] MEDS ORDERED: Senokot-S 50 MG1 TAB PO (01:12)
[2018-06-17] MEDS ORDERED: THERAGRAN-M PR1 EACH PO (01:14)
[2018-06-17] MEDS ORDERED: VITAMIN C500 M6 PO (01:15)
[2018-06-17] MEDS ORDERED: VITAMIN D400 I1 PO (01:16)
[2018-06-17] MEDS ORDERED: Zaroxolyn,Diul2.5 MG PO (01:19)
[2018-06-17 03:58] LABS: BASO % 0.1 % (0.0-1.0); EOS # 0.5 10*3/uL (0.0-0.4); EOS % 3.8 % (1.0-4.0); HEMATOCRIT 25.9 % (42.0-52.0); HEMOGLOBIN 7.7 g/dl (14.0-18.0); LYMPH # 2.1 10*3/uL (1.3-4.4); LYMPH % 14.4 % (27.0-41.0); MEAN CELL VOLUME 97.7 fl (80.0-94.0); MEAN CORPUSCULAR HGB 29.1 pg (27.0-31.0); MEAN CORPUSCULAR HGB CONC 29.7 g/dl (33.0-37.0); MEAN PLATELET VOLUME 9.2 fl (9.6-12.3); MONO # 1.1 10*3/uL (0.1-1.0); MONO % 7.8 % (3.0-9.0); NEUT # 10.3 10*3/uL (2.3-7.9); NEUT % 72.5 % (47.0-73.0); PLATELET COUNT AUTOMATED 243 10*3/uL (130-400); RED BLOOD COUNT 2.65 10*6/uL (4.50-5.90); RED CELL DISTRI WIDTH 13.9 % (0-14.5); WHITE BLOOD COUNT 14.2 10*3/uL (4.8-10.8)
[2018-06-17 04:24] LABS: BUN 31 mg/dl (7-24); CHLORIDE 103 mmol/L (98-107); CHOLESTEROL 118 mg/dL (<200); CREATININE 1.15 mg/dL (0.70-1.30); HDL CHOLESTEROL 36 mg/dl (40-60); IRON 26 ug/dL (65-175); LDL CHOLESTEROL 63 mg/dL (9-159); SODIUM 142 mmol/L (136-145); TRIGLYCERIDES 95 mg/dl (<150); VLDL CHOLESTEROL 19 mg/dL (6-40)
[2018-06-17 04:30] LABS: TOTAL IRON BINDING CAPACITY 193 ug/dl (250-450)
[2018-06-17 05:45] VITALS: BP 141/60
[2018-06-17 06:45] VITALS: BP 149/67
[2018-06-17 06:56] LABS: FERRITIN 150.2 ng/mL (22.0-322.0)
[2018-06-17 12:00] VITALS: BP 146/65
[2018-06-17 14:09] LABS: BASO % 0.2 % (0.0-1.0); EOS # 0.7 10*3/uL (0.0-0.4); EOS % 5.8 % (1.0-4.0); HEMATOCRIT 26.8 % (42.0-52.0); HEMOGLOBIN 8.2 g/dl (14.0-18.0); LYMPH # 2.2 10*3/uL (1.3-4.4); LYMPH % 16.9 % (27.0-41.0); MEAN CELL VOLUME 95.7 fl (80.0-94.0); MEAN CORPUSCULAR HGB 29.3 pg (27.0-31.0); MEAN CORPUSCULAR HGB CONC 30.6 g/dl (33.0-37.0); MEAN PLATELET VOLUME 9.1 fl (9.6-12.3); MONO % 7.7 % (3.0-9.0); NEUT # 8.6 10*3/uL (2.3-7.9); NEUT % 67.4 % (47.0-73.0); PLATELET COUNT AUTOMATED 230 10*3/uL (130-400); RED CELL DISTRI WIDTH 14.6 % (0-14.5); WHITE BLOOD COUNT 12.7 10*3/uL (4.8-10.8)
[2018-06-17 16:00] VITALS: BP 109/73
[2018-06-17 20:00] VITALS: BP 155/79
[2018-06-18] VITALS: BP 147/66
[2018-06-18 06:46] LABS: BASO % 0.2 % (0.0-1.0); EOS # 0.8 10*3/uL (0.0-0.4); HEMATOCRIT 26.4 % (42.0-52.0); HEMOGLOBIN 7.8 g/dl (14.0-18.0); LYMPH % 19.8 % (27.0-41.0); MEAN CELL VOLUME 96.4 fl (80.0-94.0); MEAN CORPUSCULAR HGB 28.5 pg (27.0-31.0); MEAN CORPUSCULAR HGB CONC 29.5 g/dl (33.0-37.0); MEAN PLATELET VOLUME 9.2 fl (9.6-12.3); MONO # 0.9 10*3/uL (0.1-1.0); MONO % 8.4 % (3.0-9.0); NEUT # 6.2 10*3/uL (2.3-7.9); NEUT % 60.8 % (47.0-73.0); PLATELET COUNT AUTOMATED 245 10*3/uL (130-400); RED BLOOD COUNT 2.74 10*6/uL (4.50-5.90); RED CELL DISTRI WIDTH 14.4 % (0-14.5); WHITE BLOOD COUNT 10.2 10*3/uL (4.8-10.8)
[2018-06-18 06:59] LABS: BUN 26 mg/dl (7-24); CHLORIDE 102 mmol/L (98-107); CREATININE 1.03 mg/dL (0.70-1.30); INTERNATIONAL NORM RATIO 1.3 (2.0-3.5); POTASSIUM 4.1 mmol/L (3.5-5.1); SODIUM 140 mmol/L (136-145)
[2018-06-18 08:00] VITALS: BP 142/82
[2018-06-18 12:00] VITALS: BP 151/62
[2018-06-18 16:00] VITALS: BP 144/81
[2018-06-18 20:00] VITALS: BP 141/67
[2018-06-19] VITALS: BP 142/84
[2018-06-19 07:31] LABS: HEMATOCRIT 28.7 % (42.0-52.0); HEMOGLOBIN 8.3 g/dl (14.0-18.0); MEAN CORPUSCULAR HGB 28.8 pg (27.0-31.0); MEAN CORPUSCULAR HGB CONC 28.9 g/dl (33.0-37.0); MEAN PLATELET VOLUME 9.3 fl (9.6-12.3); PLATELET COUNT AUTOMATED 259 10*3/uL (130-400); RED BLOOD COUNT 2.88 10*6/uL (4.50-5.90); RED CELL DISTRI WIDTH 14.2 % (0-14.5); WHITE BLOOD COUNT 8.7 10*3/uL (4.8-10.8)
[2018-06-19 07:35] LABS: MEAN CELL VOLUME 99.7 fl (80.0-94.0)
[2018-06-19 07:49] LABS: PLATELET SUFFICIENCY NORMAL (NORMAL); POLYCHROMASIA SLIGHT; TOTAL CELLS COUNTED 100 #CELLS
[2018-06-19 07:52] LABS: BUN 25 mg/dl (7-24); CHLORIDE 103 mmol/L (98-107); CREATININE 1.15 mg/dL (0.70-1.30); POTASSIUM 4.5 mmol/L (3.5-5.1); SODIUM 140 mmol/L (136-145)
[2018-06-19 08:00] VITALS: BP 143/87
[2018-06-19 12:00] VITALS: BP 149/65
[2018-06-19 16:00] VITALS: BP 149/81
[2018-06-19 20:00] VITALS: BP 156/71
[2018-06-20] VITALS: BP 150/85
[2018-06-20 06:10] LABS: BASO % 0.3 % (0.0-1.0); EOS # 0.9 10*3/uL (0.0-0.4); HEMATOCRIT 29.7 % (42.0-52.0); HEMOGLOBIN 8.5 g/dl (14.0-18.0); LYMPH # 1.7 10*3/uL (1.3-4.4); MEAN CELL VOLUME 99.3 fl (80.0-94.0); MEAN CORPUSCULAR HGB 28.4 pg (27.0-31.0); MEAN CORPUSCULAR HGB CONC 28.6 g/dl (33.0-37.0); MEAN PLATELET VOLUME 9.3 fl (9.6-12.3); MONO # 0.8 10*3/uL (0.1-1.0); MONO % 8.7 % (3.0-9.0); NEUT # 5.4 10*3/uL (2.3-7.9); NEUT % 59.7 % (47.0-73.0); PLATELET COUNT AUTOMATED 262 10*3/uL (130-400); RED BLOOD COUNT 2.99 10*6/uL (4.50-5.90); WHITE BLOOD COUNT 9.1 10*3/uL (4.8-10.8)
[2018-06-20 06:17] LABS: BUN 25 mg/dl (7-24); CHLORIDE 102 mmol/L (98-107); CREATININE 1.18 mg/dL (0.70-1.30); POTASSIUM 4.6 mmol/L (3.5-5.1); SODIUM 139 mmol/L (136-145)
[2018-06-20 06:21] LABS: INTERNATIONAL NORM RATIO 1.5 (2.0-3.5)
[2018-06-20 08:00] VITALS: BP 147/67
[2018-06-20 12:00] VITALS: BP 146/57
[2018-06-20 16:00] VITALS: BP 153/73
[2018-06-20 20:00] VITALS: BP 149/58
[2018-06-21] VITALS: BP 147/80
[2018-06-21 05:40] LABS: ALBUMIN 2.4 gm/dl (3.1-4.5); ALKALINE PHOSPHATASE 96 U/L (45-117); BUN 23 mg/dl (7-24); CHLORIDE 103 mmol/L (98-107); CREATININE 1.24 mg/dL (0.70-1.30); POTASSIUM 4.7 mmol/L (3.5-5.1); SGOT/AST 10 IU/L (3-35); SGPT/ALT 12 U/L (12-78); SODIUM 141 mmol/L (136-145); TOTAL PROTEIN 6.7 gm/dL (6.4-8.2)
[2018-06-21 06:18] LABS: INTERNATIONAL NORM RATIO 1.6 (2.0-3.5)
[2018-06-21 06:20] LABS: VANCOMYCIN TROUGH 60.5 ug/mL (10-20)
[2018-06-21 08:00] VITALS: BP 145/69
[2018-06-21 12:00] VITALS: BP 156/64
[2018-06-21 16:00] VITALS: BP 114/71
[2018-06-21 20:00] VITALS: BP 149/82
[2018-06-22] VITALS: BP 150/69
[2018-06-22 06:12] LABS: BUN 22 mg/dl (7-24); CHLORIDE 101 mmol/L (98-107); CREATININE 1.23 mg/dL (0.70-1.30); SODIUM 140 mmol/L (136-145)
[2018-06-22 06:26] LABS: INTERNATIONAL NORM RATIO 1.7 (2.0-3.5)
[2018-06-22 08:00] VITALS: BP 139/60
[2018-06-22 12:00] VITALS: BP 128/50
[2018-06-22 16:00] VITALS: BP 138/60
[2018-06-23] VITALS: BP 148/68
[2018-06-23 06:49] LABS: BASO % 0.2 % (0.0-1.0); EOS # 0.6 10*3/uL (0.0-0.4); EOS % 6.8 % (1.0-4.0); HEMATOCRIT 26.5 % (42.0-52.0); HEMOGLOBIN 7.8 g/dl (14.0-18.0); LYMPH # 1.8 10*3/uL (1.3-4.4); LYMPH % 19.5 % (27.0-41.0); MEAN CELL VOLUME 99.6 fl (80.0-94.0); MEAN CORPUSCULAR HGB 29.3 pg (27.0-31.0); MEAN CORPUSCULAR HGB CONC 29.4 g/dl (33.0-37.0); MEAN PLATELET VOLUME 9.1 fl (9.6-12.3); MONO # 0.7 10*3/uL (0.1-1.0); MONO % 7.4 % (3.0-9.0); PLATELET COUNT AUTOMATED 264 10*3/uL (130-400); RED BLOOD COUNT 2.66 10*6/uL (4.50-5.90); WHITE BLOOD COUNT 9.2 10*3/uL (4.8-10.8)
[2018-06-23 07:01] LABS: BUN 22 mg/dl (7-24); CHLORIDE 100 mmol/L (98-107); CREATININE 1.18 mg/dL (0.70-1.30); POTASSIUM 4.7 mmol/L (3.5-5.1); SODIUM 139 mmol/L (136-145)
[2018-06-23 07:02] LABS: INTERNATIONAL NORM RATIO 1.8 (2.0-3.5)
[2018-06-23 07:04] LABS: PHOSPHOROUS 3.2 mg/dL (2.5-4.9); VANCOMYCIN RANDOM 48.7 ug/mL
[2018-06-23 08:00] VITALS: BP 145/60
[2018-06-23 12:00] VITALS: BP 140/49
[2018-06-23] MEDS ORDERED: TERBINAFINE250 MG PO (15:26)
[2018-06-23] MEDS ORDERED: LAMISIL AT12 GM T (15:26)
[2018-06-23] MEDS ORDERED: CEFAZOLIN-2 GM/100 M IV (15:26)
[2018-06-23] MEDS ORDERED: DOXYCYCLINE100 M3 PO (15:26)
[2018-06-23 16:00] VITALS: BP 139/61
[2018-06-23] MEDS ORDERED: LASIX20 MG PO (17:07)
[2018-06-23] MEDS ORDERED: COUMADIN7.5 M1 PO (17:07)
[2018-06-23] MEDS ORDERED: LANTUS SOL100 UNIT/1 SQ (17:09)
[2018-06-23] MEDS ORDERED: Aquaphor T (17:09)
[2018-06-23] MEDS ORDERED: REMEDY CALAZIME4 GM T (17:09)
[2018-06-23] MEDS ORDERED: HYDROCODONE-AC1 EAC1 PO (17:11)
== END 2018-06-23 20:25 | disposition other institution (70) | DRG 871 ==
LOC: ED 17:24 → EDHOLD 19:08 → 4E 19:08
PROVIDERS: Family Medicine; Internal Medicine; Physician Assistant; Student in an Organized Health Care Education/Training Program
PROC: 02HV33Z Insertion of Infusion Device into Superior Vena Cava, Percutaneous Approach (ICD-10-PCS; principal; 2018-06-22)
DX: A41.9 Sepsis, unspecified organism (principal); E43 Unspecified severe protein-calorie malnutrition; L89.309 Pressure ulcer of unspecified buttock, unspecified stage; J96.11 Chronic respiratory failure with hypoxia; D68.59 Other primary thrombophilia; I11.0 Hypertensive heart disease with heart failure; I50.9 Heart failure, unspecified; E11.65 Type 2 diabetes mellitus with hyperglycemia; E66.01 Morbid (severe) obesity due to excess calories; E83.51 Hypocalcemia; L03.115 Cellulitis of right lower limb; Z68.43 Body mass index [BMI] 50.0-59.9, adult; E03.9 Hypothyroidism, unspecified; J44.9 Chronic obstructive pulmonary disease, unspecified; D53.9 Nutritional anemia, unspecified; I87.2 Venous insufficiency (chronic) (peripheral); M1A.09X0 Idiopathic chronic gout, multiple sites, without tophus (tophi); S91.104A Unspecified open wound of right lesser toe(s) without damage to nail, initial encounter; G47.30 Sleep apnea, unspecified; F32.9 Major depressive disorder, single episode, unspecified; Z79.4 Long term (current) use of insulin; Z99.81 Dependence on supplemental oxygen; S82.142D Displaced bicondylar fracture of left tibia, subsequent encounter for closed fracture with routine healing; S82.401D Unspecified fracture of shaft of right fibula, subsequent encounter for closed fracture with routine healing; Z79.01 Long term (current) use of anticoagulants; Z88.8 Allergy status to other drugs, medicaments and biological substances; Z79.84 Long term (current) use of oral hypoglycemic drugs; Z83.3 Family history of diabetes mellitus; Z82.49 Family history of ischemic heart disease and other diseases of the circulatory system; Z80.9 Family history of malignant neoplasm, unspecified

== ENCOUNTER 2018-12-17 22:09 | Emergency (ER) | payer MEDICARE, MEDICAID ==
[~2018-12-17] VITALS: Ht 177.8 cm; Wt 225.9 kg
[~2018-12-17 22:09] MED LIST changes: +ACETAZOLAMIDE250 MG PO; +Aquaphor T; +CEFAZOLIN-2 GM/100 M IV; +COUMADIN4 M2 PO; +COUMADIN7.5 M1 PO; +COZAAR100 MG PO; +DEEP SEA44 ML NAS; +DOXYCYCLINE100 M3 PO; +DULCOLAX STOOL100 M1 PO; +DULCOLAX10 M1 R; +HYDROCODONE-AC1 EAC1 PO; +LAMISIL AT12 GM T; +LANTUS SOL100 UNIT/1 SQ; +MILK OF MA400 MG/5 M PO; +REMEDY CALAZIME4 GM T; +SENNOSIDES-DOC1 EACH PO; +SENSE PAI PO; +Senokot-S 50 MG1 TAB PO; +TERBINAFINE250 MG PO; +THERAGRAN-M PR1 EACH PO; +VITAMIN C500 M6 PO; +WARFARIN SODIUM3 MG PO; +Zaroxolyn,Diul2.5 MG PO
[2018-12-17 22:45] LABS: BASO % 0.3 % (0.0-1.0); EOS # 0.4 10*3/uL (0.0-0.4); EOS % 4.6 % (1.0-4.0); HEMATOCRIT 33.1 % (42.0-52.0); HEMOGLOBIN 9.2 g/dl (14.0-18.0); LYMPH # 1.2 10*3/uL (1.3-4.4); LYMPH % 16.1 % (27.0-41.0); MEAN CELL VOLUME 107.8 fl (80.0-94.0); MEAN CORPUSCULAR HGB CONC 27.8 g/dl (33.0-37.0); MEAN PLATELET VOLUME 9.9 fl (9.6-12.3); MONO # 0.6 10*3/uL (0.1-1.0); NEUT # 5.4 10*3/uL (2.3-7.9); NEUT % 70.7 % (47.0-73.0); PLATELET COUNT AUTOMATED 172 10*3/uL (130-400); RED BLOOD COUNT 3.07 10*6/uL (4.50-5.90); RED CELL DISTRI WIDTH 14.6 % (0-14.5); WHITE BLOOD COUNT 7.6 10*3/uL (4.8-10.8)
[2018-12-17 22:56] LABS: INTERNATIONAL NORM RATIO 3.6 (2.0-3.5)
[2018-12-17 23:03] LABS: ALBUMIN 3.5 gm/dl (3.1-4.5); CREATININE 1.48 mg/dL (0.70-1.30); POTASSIUM 4.5 mmol/L (3.5-5.1); TOTAL PROTEIN 7.8 gm/dL (6.4-8.2)
== END 2018-12-18 12:16 ==
LOC: ED 22:09
PROVIDERS: Emergency Medicine
DX: K92.1 Melena (principal); R63.0 Anorexia; R42 Dizziness and giddiness; I11.0 Hypertensive heart disease with heart failure; I50.9 Heart failure, unspecified; E11.9 Type 2 diabetes mellitus without complications; J44.9 Chronic obstructive pulmonary disease, unspecified; M10.9 Gout, unspecified; E03.9 Hypothyroidism, unspecified; E66.01 Morbid (severe) obesity due to excess calories; Z88.8 Allergy status to other drugs, medicaments and biological substances; Z79.899 Other long term (current) drug therapy; Z79.4 Long term (current) use of insulin; Z87.891 Personal history of nicotine dependence

== ENCOUNTER 2018-12-21 12:13 | Emergency (ER) | payer MEDICARE, MEDICAID ==
[~2018-12-21] VITALS: Wt 226.8 kg
[2018-12-21] VITALS (15 sets, daily range): BP systolic 117–156; BP diastolic 47–81
--- NOTE | ~2018-12-21 | EKG ---
[place], [place] ELECTROCARDIOGRAM REPORT NAME: ANKUR NAVAS UNIT #: [id number] ROOM: DOCTOR: EPIPHANY DRAFT REPORT BIRTHDATE: [birth year] [facility] Test Date: 2018-12-21 Test Time: 12:37:38 Pat Name: ANKUR NAVAS Department: Room: Gender: Manager Database Administration: : 1955 Requested By: ABY GUPTA Order Number: [id number] Reading MD: Measurements Intervals [place] Rate: 68 P: 41 IN: 68 QRS: -14 QRSD: 184 T: 111 QT: 487 QTc: 519 Interpretive Statements A-V dual-paced rhythm with some inhibition No further analysis attempted due to paced rhythm Compared to ECG 09/30/2018 11:05:33 Sinus rhythm no longer present Second-degree AV block, Mobitz type I (Wenckebach) no longer present Left anterior fascicular block no longer present Right bundle-branch block no longer present CM:EKGRPT:ELECTROCARDIOGRAM REPORT [id number] ABY HURLEY DRAFT REPORT ABY GUPTA MD
[2018-12-21 12:41] LABS: BASO % 0.3 % (0.0-1.0); EOS # 0.3 10*3/uL (0.0-0.4); HEMATOCRIT 32.6 % (42.0-52.0); HEMOGLOBIN 9.1 g/dl (14.0-18.0); LYMPH # 2.1 10*3/uL (1.3-4.4); MEAN CELL VOLUME 106.9 fl (80.0-94.0); MEAN CORPUSCULAR HGB 29.8 pg (27.0-31.0); MEAN CORPUSCULAR HGB CONC 27.9 g/dl (33.0-37.0); MEAN PLATELET VOLUME 9.7 fl (9.6-12.3); MONO # 0.7 10*3/uL (0.1-1.0); MONO % 8.5 % (3.0-9.0); NEUT # 5.5 10*3/uL (2.3-7.9); NEUT % 63.6 % (47.0-73.0); PLATELET COUNT AUTOMATED 162 10*3/uL (130-400); RED BLOOD COUNT 3.05 10*6/uL (4.50-5.90); RED CELL DISTRI WIDTH 14.8 % (0-14.5); WHITE BLOOD COUNT 8.7 10*3/uL (4.8-10.8)
[2018-12-21 12:57] LABS: ALBUMIN 3.2 gm/dl (3.1-4.5); CREATININE 1.57 mg/dL (0.70-1.30); POTASSIUM 4.1 mmol/L (3.5-5.1); TOTAL PROTEIN 7.7 gm/dL (6.4-8.2); TROPONIN I 0.044 ng/ml (<0.045)
[2018-12-21 12:58] LABS: ACT PARTIAL THROMBO TIME 44.4 SECONDS (20.8-31.5)
--- NOTE | 2018-12-21 13:04 | NUR ---
ATTEMPTS WERE MADE TO CLEANSE PATIENT BOWEL MOVEMENT. 5 NURSES IN ROOM AT THIS TIME NOT ABLE TO SAFELY TURN PATIENT EITHER WAY ON BED TO COMPLETE WOUND ASSESSMENT OR COMPLETE CLEANSING. BL LEGS WERE CLEANED TO THE BEST OF ABILITY AND CLEAN PADS PLACED UNDER PATIENT.
[2018-12-21 13:12] LABS: INTERNATIONAL NORM RATIO 5.8 (2.0-3.5)
--- NOTE | 2018-12-21 13:16 | NUR ---
PATIENT REMOVED HIS O2. O2 STAT AT 72% NON REBREATHER PLACED ONTO PATIENT AT THIS TIME. PULSE OX IS 87% ON NON REBREATHER.
--- NOTE | 2018-12-21 14:00 | NUR ---
THIS NURSE WAS UPSTAIRS WHILE LIANNA UGALDE RESPIRATORY WAS IN ROOM WITH PATIENT. SGE STATES THAT THE PATIENT WAS LOOKING AT HER BUT NOT SPEAKING. STATES HE THEN CLOSED HIS EYES AND BEGAN HAVING SNORING RESPIRATIONS. PATIENT INTUBATED FAIRLY AFTER THAT WITH A 8.0 ET TUBE AND IS 25CM AT THE LIP. PATIENT CURRENT VENT SETTINGS ARE ON PEEP 5.0 TV550 100% O2 AT THIS TIME. PATIENT IS NOW 100% ON VENT.
[2018-12-21 14:09] LABS: ARTERIAL BLOOD GAS PH 6.973 (7.35-7.45)
--- NOTE | 2018-12-21 14:23 | NUR ---
PATIENT TITRATED DOWN TO 80% O2 AT THIS TIME.
--- NOTE | 2018-12-21 14:30 | NUR ---
PATIENT CURRENTLY RESTING WITH EYES CLOSED. INTUBATED.
--- NOTE | 2018-12-21 15:03 | NUR ---
PATIENT HAS BEEN SET UP FOR CENTRAL LINE. VANCOMYCIN AND IV FLUIDS STARTED.
--- NOTE | 2018-12-21 15:35 | NUR ---
PHARMACY CALLED FOR PROPOFOL BOTTLE. STATES THIS IS IN THE [place]. MEDICATION DID NOT HAVE A START TIME ON EMAR. DR GUPTA STATES THIS IS TO BE USED THE MORPHINE AND NOT FOR SEDATION. STATES TO START IT AT 5MCG/MIN AND FOR IT TO NOT BE TITRATED FROM THERE.
--- NOTE | 2018-12-21 15:50 | NUR ---
PATIENT REINTUBATED AT THIS TIME.
--- NOTE | 2018-12-21 15:50 | NUR ---
PATIENT GIVEN 150MG OF SUCCINYLCHOLINE AND ALSO 30MG ETOMIDATE BY BRITTANEY LEWIS.
--- NOTE | 2018-12-21 16:03 | NUR ---
PT SELF EXTUBATED. REINTUBATED BY ANESTIOLGIST.
[2018-12-21 16:16] LABS: CREATININE 1.69 mg/dL (0.70-1.30); POTASSIUM 4.4 mmol/L (3.5-5.1)
--- NOTE | 2018-12-21 16:26 | NUR ---
CALLED PHARMACY AT THIS TIME TO SEE FOR VERSED ORDER.
[2018-12-21 16:30] LABS: ABG BASE EXCESS 3.2 mmol/L (-2.0-2.0); ABG HCO3 32.4 mmol/l (22-26); ABG O2 SATURATION 99.5 % (95-97); ARTERIAL BLOOD GAS PH 7.201 (7.35-7.45)
[2018-12-21 18:10] LABS: BILIRUBIN NEGATIVE (NEGATIVE); BLOOD 3+ (NEGATIVE); CLARITY CLOUDY (CLEAR); COLOR YELLOW (YELLOW); GLUCOSE NEGATIVE (NEGATIVE); KETONE NEGATIVE (NEGATIVE); LEUKO ESTERASE NEGATIVE (NEGATIVE); NITRITE NEGATIVE (NEGATIVE); SPECIFIC GRAVITY >= 1.030 (1.005-1.030); UROBILINOGEN 0.2 E.U./dl (0.2-1.0)
[2018-12-21 18:16] LABS: BACTERIA 3+; MUCOUS 1+; RBC TNTC rbc/hpf (0-2)
--- NOTE | 2018-12-21 18:25 | NUR ---
VERBAL ORDER TO DC FLUIDS AT THIS TIME BY DR GUPTA.
--- NOTE | 2018-12-21 18:28 | NUR ---
REPORT GIVEN TO [facility] AND THEY STATE WILL BE HERE IN ABOUT 1 HOUR TO AN HOUR AND 15 MINUTES FOR TRANSPORT.
--- NOTE | 2018-12-21 18:45 | NUR ---
REPORT GIVEN TO HERMILO AT [facility] AT THIS TIME.
--- NOTE | 2018-12-21 19:05 | NUR ---
REPORT GIVEN TO PABLO LEWIS AT THIS TIME.
--- NOTE | 2018-12-21 19:17 | NUR ---
PATIENT EYELIDS FLUTTERING AND PATIENT STARTING TO MOVE RIGHT ARM, DR ALVAREZ AWARE. PER DR ALVAREZ VERBAL ORDER 8MCG/KG/MIN. WILL CONTINUE TO MONITOR PATIENT.
--- NOTE | 2018-12-21 19:28 | NUR ---
INCREASED PROPAFOL DRIP TO 10MCG/KG/MIN. PATIENT MOVING HAND AND EYES FLUTTERING. DR ALVAREZ AWARE.
--- NOTE | 2018-12-21 19:41 | NUR ---
PATIENT REPOSITIONED SLIGHTLY AT THIS TIME WITH 3 OTHER NURSES. PLACED EAR PROBE ON PATIENT AT THIS TIME. PULSE OX 100% ON 80% O2 ON VENT.
--- NOTE | 2018-12-21 20:30 | NUR ---
[facility] HERE AT THIS TIME TO TRANSPORT PATIENT TO [facility]. DEBBIE YOUNG AND [employer] SETTING PATIENT UP FOR TRANSFER TO THEIR COT AT THIS TIME. NO DISTRESS NOTED TO PATIENT.
--- NOTE | 2018-12-21 21:02 | NUR ---
Transfer Out, from the Emergency Department - Stable This patient, ANKUR NAVAS, 63[birth year], [id number], [id number], was examined by the Emergency Department physician, FOZIA Gilliland MD and efforts were made to stabilize the patient. The patient's condition is stable. The reason for transfer is need higher level of care . The Emergency physician has made the decision to transfer the patient out. Refer to the ED physician's dictation for the family/back-up physician notified. The attending physician has spoken to the accepting physician at the receiving facility, [facility]. Refer to the ED physician's dictation. The receiving facility has space and qualified personnel to care for the patient, and has agreed to accept the patient. Proper equipment and trained personnel have been arranged. The mode of transport is ground. The agency is AMBULANCE. The Emergency physician has spoken to the transport staff re: patient's condition and needs during transport. Copies of the medical record have been forwarded to the receiving facility, including: - Emergency Department record: - name, address, hospital number, age, next of kin - presenting problem - history of injury, past medical history - treatment, medications & route, fluid type & volume - lab and xray findings, films - physical findings - vitals signs -- prehospital, emergency, pre-transfer - preliminary diagnosis - status/condition - emergency medical services record - consent for transfer - authorization for record release - name of any involed physicians -- responsive or not - name and address of referring physician - name of contact physician at receiving facility - name of accepting physician at receiving facility Nursing report has been given to DEBBIE YOUNG ([facility]), REPORT WAS CALLED TO DEBBIE AKHTAR EARLIER BY JOHNNY RICHARDSON RN. . Valuables include BELONGINGS. and were given to [facility]. PABLO ROSENBERG
--- NOTE | 2018-12-21 21:32 | NUR ---
[facility] AND GAVE [facility]PORT ON PATIENT AT THIS TIME. PER KAILEY PATIENT IS APPROXIMATELY 15 MIN OUT FROM THEIR HOSPITAL.
== END 2018-12-21 20:30 | disposition short-term general hospital (02) ==
LOC: ED 12:13 → EDHOLD 13:30 → ICCU 13:45 → EDHOLD 13:45 → ICCU 13:45 → ED 20:30
PROVIDERS: Emergency Medicine
DX: J96.00 Acute respiratory failure, unspecified whether with hypoxia or hypercapnia (principal); E11.649 Type 2 diabetes mellitus with hypoglycemia without coma; G93.49 Other encephalopathy; I11.0 Hypertensive heart disease with heart failure; I50.9 Heart failure, unspecified; J44.9 Chronic obstructive pulmonary disease, unspecified; M10.9 Gout, unspecified; E66.01 Morbid (severe) obesity due to excess calories; E03.9 Hypothyroidism, unspecified; Z99.81 Dependence on supplemental oxygen; Z90.89 Acquired absence of other organs; Z79.899 Other long term (current) drug therapy; Z88.6 Allergy status to analgesic agent; Z87.891 Personal history of nicotine dependence; Z79.01 Long term (current) use of anticoagulants; Z79.4 Long term (current) use of insulin